=== PATIENT | female | born 1990 | race Caucasian/White ===

== ENCOUNTER 2017-08-11 07:25 | Inpatient (IN) | payer MEDICAID ==
[2017-08-11] MEDS ORDERED: Calcium Carbonate 500 MG Tab.Chew PO PRN (08:02)
[2017-08-11] MEDS ORDERED: fentaNYL 100 MCG/2 ML SDV IVPUSH PRN (08:02)
[2017-08-11] MEDS ORDERED: Sodium Chloride 0.9% 10 ML Syringe FLUSH PRN (08:02)
[2017-08-11] MEDS ORDERED: Acetaminophen 325 MG Tab PO PRN (08:02)
[2017-08-11] MEDS ORDERED: Lactated Ringers 1,000 ML IV ONE (08:10)
[2017-08-11] MEDS ORDERED: Misoprostol 50 MCG (1/2 of 100 MCG) Tab VAG ONE (08:30)
--- NOTE | 2017-08-11 08:31 | PCM.LDHP ---
L&D History of Present Illness - General Date of Service: 08/11/17 Admit Problem/Dx: Patient Status Order with Admit Dx/Problem 08/11/17 08:02 Patient Status [ADT] Routine Admission Diagnosis/Problem Admission Diagnosis/Problem - Related Data Allergies/Adverse Reactions: Allergies Allergy/AdvReac Type Severity Reaction Status Date / Time Sulfa (Sulfonamide Allergy Hives Verified 08/06/15 16:59 Antibiotics) Home Medications: Home Meds Albuterol [Ventolin HFA] 1 - 2 puff INH ASDIRECTED PRN 08/06/15 [History] QUEtiapine Fumarate [Quetiapine Fumarate] 200 mg PO BEDTIME 08/06/15 [History] Vit #116/Iron/FA/Dha [ Formula-Dha Softgel] 1 tab PO DAILY [History] Past Medical History : 2 Para: 1 Social & Family History - Tobacco Use Smoking Status *Q: Light Tobacco Smoker Years of Tobacco use: 3 Packs/Tins Daily: 0.5 - Recreational Drug Use Recreational Drug Use: No H&P Review of Systems - Review of Systems: Review Of Systems: See Below General: Reports: No Symptoms HEENT: Reports: No Symptoms Pulmonary: Reports: No Symptoms Cardiovascular: Reports: No Symptoms Gastrointestinal: Reports: No Symptoms Genitourinary: Reports: No Symptoms Musculoskeletal: Reports: No Symptoms Skin: Reports: No Symptoms Psychiatric: Reports: No Symptoms Neurological: Reports: No Symptoms Hematologic/Lymphatic: Reports: No Symptoms Immunologic: Reports: No Symptoms L&D Exam - Exam Exam: See Below - Vital Signs Vital Signs: Last Vital Signs Temp 36.2 C 08/11/17 07:40 Pulse 96 08/11/17 07:40 Resp 16 08/11/17 07:40 BP 115/82 08/11/17 07:40 Pulse Ox 98 08/11/17 07:40 - OB Specific Presentation: Vertex Estimated Weight: 7lbs - Smiley Score Smiley Score Cervix Position: Midposition Smiley Score Consistency: Soft Smiley Score Effacement: 51-70% Smiley Score Dilation: 3-4 cm Smiley Score Infant's Station: -1 ,0 Smiley Score Total: 9 - Exam General: Alert, Oriented HEENT: PERRLA, Conjunctiva Clear, EACs Clear, EOMI, Hearing Intact, Mucosa Moist & [place], Nares Patent, Normal Nasal Septum, Posterior Pharynx Clear, TMs Clear Neck: Supple, Trachea Midline Lungs: Clear to Auscultation, Normal Respiratory Effort Cardiovascular: Regular Rate, Regular Rhythm GI/Abdominal Exam: Normal Bowel Sounds, Soft, Non-Tender, No Organomegaly, No Distention, No Abnormal Bruit, No Mass, Pelvis Stable Rectal Exam: Normal Exam, Normal Rectal Tone Genitourinary: Normal external exam, Normal bimanual exam, Normal speculum exam Back Exam: Normal Inspection, Full Range of Motion Extremities: Normal Inspection, Normal Range of Motion, Non-Tender, No Pedal Edema, Normal Capillary Refill Skin: Warm, Dry, Intact Neurological: Cranial Nerves Intact, Reflexes Equal Bilateral Psychiatric: Alert, Normal Affect, Normal Mood - Patient Data Lab Results Last 24 hrs: Laboratory Results - last 24 hr 08/11/17 08/11/17 Range/Units 07:37 07:37 Urine Color Yellow Urine Appearance Cloudy Urine pH 6.0 (4.5-8.0) Ur Specific [place] 1.020 (1.008-1.030) Urine Protein Negative (NEGATIVE) mg/dL Urine Glucose (UA) Normal (NEGATIVE) mg/dL Urine Ketones Negative (NEGATIVE) mg/dL Urine Occult Blood Negative (NEGATIVE) Urine Nitrite Negative (NEGATIVE) Urine Bilirubin Negative (NEGATIVE) Urine Urobilinogen Normal (NORMAL) mg/dL Ur Leukocyte Esterase Small (NEGATIVE) Urine RBC 0-5 (0-5) Urine WBC 5-10 H (0-5) Ur Epithelial Cells Moderate Amorphous Sediment Not seen Urine Bacteria Moderate Urine Mucus Few Urine Opiates Screen Negative (NEGATIVE) Ur Oxycodone Screen Negative (NEGATIVE) Urine Methadone Screen Negative (NEGATIVE) Ur Propoxyphene Screen Negative (NEGATIVE) Ur Barbiturates Screen Negative (NEGATIVE) Ur Tricyclics Screen Negative (NEGATIVE) Ur Phencyclidine Scrn Negative (NEGATIVE) Ur Amphetamine Screen Negative (NEGATIVE) U Methamphetamines Scrn Negative (NEGATIVE) Urine MDMA Screen Negative (NEGATIVE) U Benzodiazepines Scrn Negative (NEGATIVE) U Cocaine Metab Screen Negative (NEGATIVE) U Marijuana (THC) Screen Negative (NEGATIVE) - Problem List (1) SNOMED Code(s): 54480789 ICD Code: Z34.90 - ENCNTR FOR SUPRVSN OF NORMAL , UNSP, UNSP TRIMESTER Status: Acute Current Visit: Yes Qualifiers: Weeks of gestation: 39 weeks Qualified Code(s): Z3A.39 - 39 weeks gestation of (2) Term SNOMED Code(s): 88900486 ICD Code: Z34.80 - ENCOUNTER FOR SUPRVSN OF NORMAL , UNSP TRIMESTER Status: Acute Current Visit: Yes (3) Social problem SNOMED Code(s): 373701341 ICD Code: Z65.9 - PROBLEM RELATED TO UNSPECIFIED PSYCHOSOCIAL CIRCUMSTANCES Status: Acute Current Visit: Yes (4) Elective induction of labor planned SNOMED Code(s): 007393688 ICD Code: [id number] - Status: Acute Current Visit: Yes Problem List Initiated/Reviewed/Updated: Yes Orders Last 24hrs: Active Orders 24 hr Category Date Time Status Patient Status [ADT] Routine ADT 08/11/17 08:02 Active Communication Order [RC] ASDIRECTED Care 08/11/17 08:02 Active Heart Tones [RC] PER UNIT ROUTINE Care 08/11/17 08:02 Active Local Anesthetic Infusion Pump [RC] ASDIRECTED Care 08/11/17 08:10 Active May Shower [RC] ASDIRECTED Care 08/11/17 08:02 Active Notify Provider Vital Signs [RC] PRN Care 08/11/17 08:02 Active Notify Provider [RC] PRN Care 08/11/17 08:02 Active PCEA Epidural [RC] ASDIRECTED Care 08/11/17 08:10 Active Up ad Marva [RC] ASDIRECTED Care 08/11/17 08:02 Active Vital Signs [RC] PER UNIT ROUTINE Care 08/11/17 08:02 Active CBC W/O DIFF,HEMOGRAM [HEME] Routine Lab 08/11/17 08:02 Ordered HEPATITIS B SURFACE ANTIGEN [REF] Routine Lab 08/11/17 08:10 Ordered HIV RAPID SCREEN RLFX COMFIRM [CHEM] Routine Lab 08/11/17 08:10 Ordered TYPE AND SCREEN [BBK] Routine Lab 08/11/17 08:10 Ordered Acetaminophen [Tylenol] Med 08/11/17 08:02 Active 650 mg PO Q4H PRN Calcium Carbonate [Tums] Med 08/11/17 08:02 Active 1,000 mg PO Q2H PRN Lactated Ringers [Ringers, Lactated] 1,000 ml Med 08/11/17 08:10 Active IV .BOLUS Misoprostol [Cytotec] Med 08/11/17 08:30 Once 50 mcg VAG ONETIME ONE Sodium Chloride 0.9% [Saline Flush] Med 08/11/17 08:02 Active 10 ml FLUSH ASDIRECTED PRN fentaNYL [Sublimaze] Med 08/11/17 08:02 Active 100 mcg IVPUSH Q1H PRN Epidural Catheter Management [OM.PC] Routine Oth 08/11/17 08:10 Ordered Saline Lock Insert [OM.PC] Routine Oth 08/11/17 08:02 Ordered Resuscitation Status Routine Resus Stat 08/11/17 08:02 Ordered Medication Orders Acetaminophen (Tylenol) 650 mg PO Q4H PRN PRN Reason: Pain (Mild 1-3) and fever Calcium Carbonate/Glycine (Tums) 1,000 mg PO Q2H PRN PRN Reason: Indigestion Fentanyl (Sublimaze) 100 mcg IVPUSH Q1H PRN PRN Reason: Pain (moderate 4-6) Lactated Ringer's (Ringers, Lactated) 1,000 mls @ 999 mls/hr IV .BOLUS ONE Stop: 08/11/17 09:10 Misoprostol (Cytotec) 50 mcg VAG ONETIME ONE Stop: 08/11/17 08:31 Last Admin: 08/11/17 08:20 Dose: 50 mcg Sodium Chloride (Saline Flush) 10 ml FLUSH ASDIRECTED PRN PRN Reason: Keep Vein Open Assessment/Plan Comment:: 08/11/2017 26 yo here today at 39 6/7 gestational weeks for an elective induction She transferred care to [place] last week due to social problems Occasional irregular contraction FHTs category one SVE-3/60/-1, midposition Cytotec 50mcg placed vaginally Plan- Monitor for active labor Monitor FHTS Regular Diet May be up ad marva May shower or tub bath Pain management per patient request Anticipate and plan for a vaginal delivery
[2017-08-11] MEDS ORDERED: Lactated Ringers 1,000 ML IV SCH (14:30)
--- NOTE | 2017-08-11 14:46 | PCM.PNLD ---
Labor Progress Note - VS & Meds Vital Signs: Last Vital Signs Temp 36.7 C 08/11/17 13:00 Pulse 90 08/11/17 13:00 Resp 18 08/11/17 13:00 BP 118/72 08/11/17 13:00 Pulse Ox 98 08/11/17 13:00 Active Medications: Current Medications Acetaminophen (Tylenol) 650 mg PO Q4H PRN PRN Reason: Pain (Mild 1-3) and fever Calcium Carbonate/Glycine (Tums) 1,000 mg PO Q2H PRN PRN Reason: Indigestion Fentanyl (Sublimaze) 100 mcg IVPUSH Q1H PRN PRN Reason: Pain (moderate 4-6) Lactated Ringer's (Ringers, Lactated) 1,000 mls @ 50 mls/hr IV ASDIRECTED DINAH Sodium Chloride (Saline Flush) 10 ml FLUSH ASDIRECTED PRN PRN Reason: Keep Vein Open Discontinued Medications Lactated Ringer's (Ringers, Lactated) 1,000 mls @ 999 mls/hr IV .BOLUS ONE Stop: 08/11/17 09:10 Last Admin: 08/11/17 13:11 Dose: 999 mls/hr Misoprostol (Cytotec) 50 mcg VAG ONETIME ONE Stop: 08/11/17 08:31 Last Admin: 08/11/17 08:20 Dose: 50 mcg - Uterine Contractions Uterine Monitoring Mode: External [place] Contraction Frequency (min): 2-3 Contraction Duration (sec): 70-110 Contraction Intensity: Mild Uterine Resting Tone: Soft - Vaginal Exam Dilation (cm): 4 Effacement (Percent): 80 Station: -1 Cervical Position: Anterior Sterile Vaginal Exam Performed By: Kadi Hale - Labor Progress (Free Text) Labor Progress: 08/11/2017 Labor progressing well with one dose of cytotec SVE-4/80/-1 Contractions regular FHTs category one Patient comfortable with position change-does desire a epidural eventually Plan- Continue to monitor labor Continue to monitor FHTs Epidural if patient desires for pain control Plan and anticipate a vaginal delivery
[2017-08-11] MEDS ORDERED: Ropivacaine 100 ML ONE (15:23)
[2017-08-11] MEDS ORDERED: fentaNYL 100 MCG/2 ML SDV ONE (15:23)
[2017-08-11] MEDS ORDERED: ePHEDrine 50 MG/ML SDV ONE (15:48)
[2017-08-11] MEDS ORDERED: Ondansetron 4 MG/2 ML SDV IVPUSH PRN (16:15)
[2017-08-11] MEDS ORDERED: diphenhydrAMINE 50 MG/ML SDV IVPUSH PRN ×2 (17:53)
[2017-08-11] MEDS ORDERED: Naloxone 0.4 MG/ML SDV IVPUSH PRN (17:53)
[2017-08-11] MEDS ORDERED: Ropivacaine 100 ML EPIDUR SCH (17:59)
--- NOTE | 2017-08-11 20:02 | ANES ---
DATE OF SERVICE: 08/11/2017 INDICATIONS: This 26-year-old lady is in labor and dilated approximately to 5 and there has been requested an order for an epidural placement. I discussed risks and benefits of this with the patient. She has had one before. She has understanding of these and has signed an informed consent. TECHNIQUE: She was placed in a sitting position on the edge of the bed. Her back was prepped with Betadine x3. She was given a 2 mL skin wheal at approximately L4-5 and another 2 to 3 mL of 1% Xylocaine into the deeper tissue. I was unable to attempt at this level and moved to L3-4. Again, another 2 mL of 1% Xylocaine was injected into the skin and another 2 to 3 mL into the deeper tissue. At this level, a 17-gauge Tuohy needle was placed in the epidural space using a loss resistance technique. I was unable to aspirate blood, fluid, or air from the epidural needles, and I gave her a 7 mL bolus that included 5 mL of 1.5% Xylocaine with epi plus 2 mL of preservative-free fentanyl 100 mcg. An epidural catheter was then threaded 3-4 cm into the epidural space and the needle was removed over the catheter and the catheter was brought up over her right shoulder and taped securely in place. She was then placed on 0.2% ropivacaine infusion at 12 mL to be titrated p.r.n. pain. This is reviewed with the nurse in attendance. The patient tolerated the procedure well. Her vital signs are stable. Her color is pink. She is alert, oriented, shows no signs of complications from the procedure. The Anesthesia Service will be contacted if they need further service. NAME OF PROCEDURE: Insertion of labor epidural. Yohan Arias CRNA /[id number]
--- NOTE | 2017-08-11 21:03 | PCM.PNLD ---
Labor Progress Note - VS & Meds Vital Signs: Last Vital Signs Temp 36.6 C 08/11/17 20:15 Pulse 77 08/11/17 20:15 Resp 18 08/11/17 20:15 BP 101/62 08/11/17 20:15 Pulse Ox 96 08/11/17 20:15 Active Medications: Current Medications Acetaminophen (Tylenol) 650 mg PO Q4H PRN PRN Reason: Pain (Mild 1-3) and fever Calcium Carbonate/Glycine (Tums) 1,000 mg PO Q2H PRN PRN Reason: Indigestion Diphenhydramine HCl (Benadryl) 25 mg IVPUSH Q6H PRN PRN Reason: ITCHING Diphenhydramine HCl (Benadryl) 50 mg IVPUSH Q6H PRN PRN Reason: ITCHING Fentanyl (Sublimaze) 100 mcg IVPUSH Q1H PRN PRN Reason: Pain (moderate 4-6) Lactated Ringer's (Ringers, Lactated) 1,000 mls @ 50 mls/hr IV ASDIRECTED DINAH Last Admin: 08/11/17 15:04 Dose: 50 mls/hr Naloxone HCl 0.4 mg/ Sodium (Chloride) 1,001 mls @ 0 mls/hr IV ASDIRECTED PRN; Protocol; Titrate PRN Reason: ITCHING Ropivacaine (Naropin 0.2%) 100 mls @ 0 mls/hr EPIDUR ASDIRECTED DINAH; Titrate PRN Reason: Protocol Oxytocin/Sodium Chloride (Pitocin In Ns 20 Units/1,000 Ml) 20 unit in 1,000 mls @ 6 mls/hr IV TITRATE DINAH; 2 MUNITS/MIN PRN Reason: Protocol Last Titration: 08/11/17 20:11 Dose: 3 munits/min, 9 mls/hr Naloxone HCl (Narcan) 0.1 mg IVPUSH Q5M PRN PRN Reason: IF RESP RATE LESS THAN 6 Ondansetron HCl (Zofran) 4 mg IVPUSH Q4H PRN PRN Reason: Nausea/Vomiting Last Admin: 08/11/17 19:37 Dose: 4 mg Sodium Chloride (Saline Flush) 10 ml FLUSH ASDIRECTED PRN PRN Reason: Keep Vein Open Discontinued Medications Ephedrine Sulfate (Ephedrine Sulfate) Confirm Administered Dose 50 mg .ROUTE .STK-MED ONE Stop: 08/11/17 15:49 Last Admin: 08/11/17 18:28 Dose: 50 mg Fentanyl (Sublimaze) Confirm Administered Dose 100 mcg .ROUTE .STK-MED ONE Stop: 08/11/17 15:24 Lactated Ringer's (Ringers, Lactated) 1,000 mls @ 999 mls/hr IV .BOLUS ONE Stop: 08/11/17 09:10 Last Admin: 08/11/17 13:11 Dose: 999 mls/hr Ropivacaine (Naropin 0.2%) Confirm Administered Dose 100 mls @ as directed .ROUTE .STK-MED ONE Stop: 08/11/17 15:24 Oxytocin/Sodium Chloride (Pitocin In Ns 20 Units/1,000 Ml) 20 unit in 1,000 mls @ 2,997 mls/hr IV ONETIME ONE; 999 MUNITS/MIN PRN Reason: Protocol Stop: 08/11/17 15:48 Last Admin: 08/11/17 19:04 Dose: 1 munits/min, 3 mls/hr Misoprostol (Cytotec) 50 mcg VAG ONETIME ONE Stop: 08/11/17 08:31 Last Admin: 08/11/17 08:20 Dose: 50 mcg - Uterine Contractions Uterine Monitoring Mode: External [place] Contraction Frequency (min): 1-3 Contraction Duration (sec): 90-100 Contraction Intensity: Moderate Uterine Resting Tone: Soft - Monitoring Monitor Mode: External Ultrasound - Vaginal Exam Dilation (cm): 5 Effacement (Percent): 80 Station: -1 Cervical Position: Anterior Sterile Vaginal Exam Performed By: Kadi Hale - Labor Progress (Free Text) Labor Progress: 08/11/2017 Patient progressing well in labor SVE-5/80/-1 Contractions regular FHTs category one Pain well managed with epidural Plan- Continue to monitor labor Continue to monitor FHTs Start Pitocin per protocol Plan and anticipate a vaginal delivery
[2017-08-11] MEDS ORDERED: Naloxone 0.4 MG/ML SDV ONE (21:54)
[2017-08-11] MEDS ORDERED: Lidocaine 1% 50 ML MDV ONE (21:54)
[2017-08-11] MEDS ORDERED: Mineral Oil 10 ML Bottle ONE (21:54)
[2017-08-11] MEDS ORDERED: Ibuprofen 200 MG Tab, 24 Tab Bulk Bottle PO PRN (22:34)
[2017-08-11] MEDS ORDERED: Acetaminophen 325 MG Tab, 50 Tab Bulk Bottle PO PRN (22:34)
[2017-08-11] MEDS ORDERED: Acetaminophen/HYDROcodone 325-5 MG Tab PO PRN (22:34)
[2017-08-11] MEDS ORDERED: Docusate Sodium 100 MG Cap PO PRN (22:34)
[2017-08-11] MEDS ORDERED: Ibuprofen 600 MG Tab PO PRN (22:34)
[2017-08-11] MEDS ORDERED: Witch Hazel Medicated Pads 100/Jar TOP PRN (22:34)
--- NOTE | 2017-08-11 23:05 | PCM.DEL ---
L & D Note - General Info Date of Service: 08/11/17 Mother's Due Date: 08/13/17 - Delivery Note Cervical Ripening Method: Misoprostil Delivery Outcome: Livebirth Delivery Method: Spontaneous Vaginal Delivery-Single Delivery Mode: Spontaneous Presentation: Vertex Nuchal Cord: None Anesthesia Type: Epidural Amniotic Fluid Description: Meconium Stained Episiotomy Type: None Laceration: None Placenta: Intact, Spontaneous Cord: 3 Vessels Estimated Blood Loss: 250 Resuscitation Needed: No : Bulb Syringe, Stimulated, Warmed, Mccormick Used Score 1 min: 9 Score 5 min: 9 Score 10 min: 9 Delivery Comments (Free Text/Narrative):: 08/11/2017 26 yo at 39 6/7 gestational weeks delivered a viable male infant normal spontaneous vaginal delivery in ELBA position on 08/11/2017 @ 2201. APGARS-9/9/9, Weight-6lbs 7.3oz, Length-18.5inches, no nuchal cord. placed on blanket on mothers abdomen, cord double clamped and cut by aunt of , infant bulb suctioned, stimulated and warmed. Began to pink in color and cry vigorously. Placenta spontaneous and intact. 3 vessel cord. EBL- 250ml. No lacerations noted of perineum, labia, vagina, cervix, or rectum. skin to skin with mother, both stable and in the labor and delivery room. - General Info Date of Service: 08/11/17 Admission Dx/Problem (Free Text): Patient Status Order with Admit Dx/Problem 08/11/17 08:02 Patient Status [ADT] Routine Admission Diagnosis/Problem Admission Diagnosis/Problem Functional Status: Reports: Pain Controlled - Review of Systems General: Reports: No Symptoms HEENT: Reports: No Symptoms Pulmonary: Reports: No Symptoms Cardiovascular: Reports: No Symptoms Gastrointestinal: Reports: No Symptoms Genitourinary: Reports: No Symptoms Musculoskeletal: Reports: No Symptoms Skin: Reports: No Symptoms Neurological: Reports: No Symptoms Psychiatric: Reports: No Symptoms - Patient Data Vitals - Most Recent: Last Vital Signs Temp 36.6 C 08/11/17 20:15 Pulse 75 08/11/17 21:13 Resp 16 08/11/17 21:13 BP 95/62 08/11/17 21:13 Pulse Ox 95 08/11/17 21:13 Weight - Most Recent: 84.822 kg I&O - Last 24 Hours: Intake & Output 08/11/17 08/11/17 08/12/17 14:59 22:59 06:59 Intake Total 700 1 Balance 700 1 Lab Results Last 24 Hours: Laboratory Results - last 24 hr 08/11/17 08/11/17 08/11/17 Range/Units 07:37 07:37 09:05 WBC 9.6 (4.5-11.0) K/uL RBC 3.85 (3.30-5.50) M/uL Hgb 10.9 L (12.0-15.0) g/dL Hct 34.1 L (36.0-48.0) % MCV 89 (80-98) fL MCH 28 (27-31) pg MCHC 32 (32-36) % Plt Count 248 (150-400) K/uL Urine Color Yellow Urine Appearance Cloudy Urine pH 6.0 (4.5-8.0) Ur Specific [place] 1.020 (1.008-1.030) Urine Protein Negative (NEGATIVE) mg/dL Urine Glucose (UA) Normal (NEGATIVE) mg/dL Urine Ketones Negative (NEGATIVE) mg/dL Urine Occult Blood Negative (NEGATIVE) Urine Nitrite Negative (NEGATIVE) Urine Bilirubin Negative (NEGATIVE) Urine Urobilinogen Normal (NORMAL) mg/dL Ur Leukocyte Esterase Small (NEGATIVE) Urine RBC 0-5 (0-5) Urine WBC 5-10 H (0-5) Ur Epithelial Cells Moderate Amorphous Sediment Not seen Urine Bacteria Moderate Urine Mucus Few Urine Opiates Screen Negative (NEGATIVE) Ur Oxycodone Screen Negative (NEGATIVE) Urine Methadone Screen Negative (NEGATIVE) Ur Propoxyphene Screen Negative (NEGATIVE) Ur Barbiturates Screen Negative (NEGATIVE) Ur Tricyclics Screen Negative (NEGATIVE) Ur Phencyclidine Scrn Negative (NEGATIVE) Ur Amphetamine Screen Negative (NEGATIVE) U Methamphetamines Scrn Negative (NEGATIVE) Urine MDMA Screen Negative (NEGATIVE) U Benzodiazepines Scrn Negative (NEGATIVE) U Cocaine Metab Screen Negative (NEGATIVE) U Marijuana (THC) Screen Negative (NEGATIVE) HIV-1 Ab Rapid Screen (NON-REACT.) Blood Type Gel Antibody Screen 08/11/17 08/11/17 Range/Units 09:05 09:05 WBC (4.5-11.0) K/uL RBC (3.30-5.50) M/uL Hgb (12.0-15.0) g/dL Hct (36.0-48.0) % MCV (80-98) fL MCH (27-31) pg MCHC (32-36) % Plt Count (150-400) K/uL Urine Color Urine Appearance Urine pH (4.5-8.0) Ur Specific [place] (1.008-1.030) Urine Protein (NEGATIVE) mg/dL Urine Glucose (UA) (NEGATIVE) mg/dL Urine Ketones (NEGATIVE) mg/dL Urine Occult Blood (NEGATIVE) Urine Nitrite (NEGATIVE) Urine Bilirubin (NEGATIVE) Urine Urobilinogen (NORMAL) mg/dL Ur Leukocyte Esterase (NEGATIVE) Urine RBC (0-5) Urine WBC (0-5) Ur Epithelial Cells Amorphous Sediment Urine Bacteria Urine Mucus Urine Opiates Screen (NEGATIVE) Ur Oxycodone Screen (NEGATIVE) Urine Methadone Screen (NEGATIVE) Ur Propoxyphene Screen (NEGATIVE) Ur Barbiturates Screen (NEGATIVE) Ur Tricyclics Screen (NEGATIVE) Ur Phencyclidine Scrn (NEGATIVE) Ur Amphetamine Screen (NEGATIVE) U Methamphetamines Scrn (NEGATIVE) Urine MDMA Screen (NEGATIVE) U Benzodiazepines Scrn (NEGATIVE) U Cocaine Metab Screen (NEGATIVE) U Marijuana (THC) Screen (NEGATIVE) HIV-1 Ab Rapid Screen Non-reactive (NON-REACT.) Blood Type A POSITIVE Gel Antibody Screen Negative Med Orders - Current: Current Medications Acetaminophen (Tylenol) 650 mg PO Q4H PRN PRN Reason: Pain (Mild 1-3) and fever Acetaminophen (Tylenol Bulk Bottle) 325 mg PO Q4H PRN PRN Reason: Pain Hydrocodone Bitart/Acetaminophen ([place] 325-5 Mg) 1 tab PO Q4H PRN PRN Reason: Pain (moderate 4-6) Calcium Carbonate/Glycine (Tums) 1,000 mg PO Q2H PRN PRN Reason: Indigestion Diphenhydramine HCl (Benadryl) 25 mg IVPUSH Q6H PRN PRN Reason: ITCHING Diphenhydramine HCl (Benadryl) 50 mg IVPUSH Q6H PRN PRN Reason: ITCHING Docusate Sodium (Colace) 100 mg PO BID PRN PRN Reason: Constipation Fentanyl (Sublimaze) 100 mcg IVPUSH Q1H PRN PRN Reason: Pain (moderate 4-6) Lactated Ringer's (Ringers, Lactated) 1,000 mls @ 50 mls/hr IV ASDIRECTED DINAH Last Admin: 08/11/17 15:04 Dose: 50 mls/hr Naloxone HCl 0.4 mg/ Sodium (Chloride) 1,001 mls @ 0 mls/hr IV ASDIRECTED PRN; Protocol; Titrate PRN Reason: ITCHING Ropivacaine (Naropin 0.2%) 100 mls @ 0 mls/hr EPIDUR ASDIRECTED DINAH; Titrate PRN Reason: Protocol Oxytocin/Sodium Chloride (Pitocin In Ns 20 Units/1,000 Ml) 20 unit in 1,000 mls @ 6 mls/hr IV TITRATE DINAH; 2 MUNITS/MIN PRN Reason: Protocol Last Titration: 08/11/17 22:38 Dose: 250 mls/hr Ibuprofen (Motrin) 600 mg PO Q6H PRN PRN Reason: mild pain or fever Naloxone HCl (Narcan) 0.1 mg IVPUSH Q5M PRN PRN Reason: IF RESP RATE LESS THAN 6 Ondansetron HCl (Zofran) 4 mg IVPUSH Q4H PRN PRN Reason: Nausea/Vomiting Last Admin: 08/11/17 19:37 Dose: 4 mg Sodium Chloride (Saline Flush) 10 ml FLUSH ASDIRECTED PRN PRN Reason: Keep Vein Open Witch Christiane (Tucks) 1 pad TOP ASDIRECTED PRN PRN Reason: Hemorrhoids Discontinued Medications Ephedrine Sulfate (Ephedrine Sulfate) Confirm Administered Dose 50 mg .ROUTE .STK-MED ONE Stop: 08/11/17 15:49 Last Admin: 08/11/17 18:28 Dose: 50 mg Fentanyl (Sublimaze) Confirm Administered Dose 100 mcg .ROUTE .STK-MED ONE Stop: 08/11/17 15:24 Lactated Ringer's (Ringers, Lactated) 1,000 mls @ 999 mls/hr IV .BOLUS ONE Stop: 08/11/17 09:10 Last Admin: 08/11/17 13:11 Dose: 999 mls/hr Ropivacaine (Naropin 0.2%) Confirm Administered Dose 100 mls @ as directed .ROUTE .STK-MED ONE Stop: 08/11/17 15:24 Oxytocin/Sodium Chloride (Pitocin In Ns 20 Units/1,000 Ml) 20 unit in 1,000 mls @ 2,997 mls/hr IV ONETIME ONE; 999 MUNITS/MIN PRN Reason: Protocol Stop: 08/11/17 15:48 Last Admin: 08/11/17 19:04 Dose: 1 munits/min, 3 mls/hr Ibuprofen (Motrin Bulk Bottle) 600 mg PO Q6H PRN PRN Reason: Pain Lidocaine HCl (Xylocaine 1%) Confirm Administered Dose 100 ml .ROUTE .STK-MED ONE Stop: 08/11/17 21:55 Mineral Oil (Muri-Lube) Confirm Administered Dose 10 ml .ROUTE .STK-MED ONE Stop: 08/11/17 21:55 Misoprostol (Cytotec) 50 mcg VAG ONETIME ONE Stop: 08/11/17 08:31 Last Admin: 08/11/17 08:20 Dose: 50 mcg Naloxone HCl (Narcan) Confirm Administered Dose 0.4 mg .ROUTE .STK-MED ONE Stop: 08/11/17 21:55 - Exam General: Alert, Oriented HEENT: Pupils Equal, Pupils Reactive, EOMI, Mucous Membr. Moist/[place] Neck: Supple Lungs: Clear to Auscultation, Normal Respiratory Effort Cardiovascular: Regular Rate, Regular Rhythm GI/Abdominal Exam: Normal Bowel Sounds, Soft, Non-Tender, No Organomegaly, No Distention, No Abnormal Bruit, No Mass, Pelvis Stable (Female) Exam: Normal External Exam, Normal Speculum Exam, Normal Bimanual Exam, Enlarged Uterus, Vaginal Bleeding Back Exam: Normal Inspection, Full Range of Motion Extremities: Normal Inspection, Normal Range of Motion, Non-Tender, No Pedal Edema, Normal Capillary Refill Skin: Warm, Dry, Intact Wound/Incisions: Healing Well Neurological: No New Focal Deficit Psy/Mental Status: Alert, Normal Affect, Normal Mood - Problem List & Annotations (1) SNOMED Code(s): 64640409 Code(s): Z34.90 - ENCNTR FOR SUPRVSN OF NORMAL , UNSP, UNSP TRIMESTER Status: Acute Current Visit: Yes Qualifiers: Weeks of gestation: 39 weeks Qualified Code(s): Z3A.39 - 39 weeks gestation of (2) Term SNOMED Code(s): 44753008 Code(s): Z34.80 - ENCOUNTER FOR SUPRVSN OF NORMAL , UNSP TRIMESTER Status: Acute Current Visit: Yes (3) Social problem SNOMED Code(s): 621165301 Code(s): Z65.9 - PROBLEM RELATED TO UNSPECIFIED PSYCHOSOCIAL CIRCUMSTANCES Status: Acute Current Visit: Yes (4) Elective induction of labor planned SNOMED Code(s): 345135286 Code(s): AYV7261 - Status: Acute Current Visit: Yes (5) Normal vaginal delivery SNOMED Code(s): 37912814 Code(s): O80 - ENCOUNTER FOR FULL-TERM UNCOMPLICATED DELIVERY Status: Acute Current Visit: Yes - Problem List Review Problem List Initiated/Reviewed/Updated: Yes - My Orders Last 24 Hours: My Active Orders 08/11/17 08:02 Patient Status [ADT] Routine Communication Order [RC] ASDIRECTED May Shower [RC] ASDIRECTED Notify Provider Vital Signs [RC] PRN Notify Provider [RC] PRN Up ad Kristen [RC] ASDIRECTED Vital Signs [RC] PER UNIT ROUTINE Acetaminophen [Tylenol] 650 mg PO Q4H PRN Calcium Carbonate [Tums] 1,000 mg PO Q2H PRN Sodium Chloride 0.9% [Saline Flush] 10 ml FLUSH ASDIRECTED PRN fentaNYL [Sublimaze] 100 mcg IVPUSH Q1H PRN Saline Lock Insert [OM.PC] Routine Resuscitation Status Routine 08/11/17 08:10 Epidural Catheter Management [OM.PC] Routine 08/11/17 09:05 HEPATITIS B SURFACE ANTIGEN [REF] Routine PATIENT RETYPE [BBK] Routine TYPE AND SCREEN [BBK] Routine 08/11/17 14:30 Lactated Ringers [Ringers, Lactated] 1,000 ml IV ASDIRECTED 08/11/17 16:05 Urinary Catheter Assessment [RC] ASDIRECTED 08/11/17 16:15 Kaur Catheter Insertion [Insert Urinary Catheter] [OM.PC] Q24H Ondansetron [Zofran] 4 mg IVPUSH Q4H PRN 08/11/17 17:53 Naloxone [Narcan] 0.1 mg IVPUSH Q5M PRN diphenhydrAMINE [Benadryl] 25 mg IVPUSH Q6H PRN diphenhydrAMINE [Benadryl] 50 mg IVPUSH Q6H PRN 08/11/17 17:56 Naloxone [Narcan] 0.4 mg Sodium Chloride 0.9% [Normal Saline] 1,000 ml IV ASDIRECTED 08/11/17 17:59 Ropivacaine [Naropin 0.2%] 100 ml EPIDUR ASDIRECTED 08/11/17 18:30 Oxytocin/Normal Saline [Pitocin in NS 20 Units/1,000 ML] 20 unit in 1,000 ml IV TITRATE 08/11/17 22:34 Patient Status [ADT] Routine Acetaminophen [Tylenol Bulk Bottle] 325 mg PO Q4H PRN Acetaminophen/HYDROcodone [[place] 325-5 MG] 1 tab PO Q4H PRN Docusate Sodium [Colace] 100 mg PO BID PRN Ibuprofen [Motrin] 600 mg PO Q6H PRN Witch Christiane [Tucks] 1 pad TOP ASDIRECTED PRN Assess Lochia [WOMSER] Per Unit Routine Assess Uterine Involution [WOMSER] Per Unit Routine 08/11/17 22:35 Perineal Care [OM.PC] Per Unit Routine 08/12/17 06:00 CBC WITH AUTO DIFF [HEME] Routine 08/12/17 Breakfast Regular Diet [DIET] - Assessment Assessment:: 08/11/2017 26 yo G2 now P2 at 39 6/7 gestational weeks delivered on 08/11/2017 @ 2201 without complications Bottlefeeding Labs-A positive, Rubella immune, Hep B negative, HIV negative, RPR nonreactive, GBS negative, Hgb-10.9 - Plan Plan:: 08/11/2017 26 yo here today at 39 6/7 gestational weeks for an elective induction She transferred care to [place] last week due to social problems Occasional irregular contraction FHTs category one [id number], midposition Cytotec 50mcg placed vaginally Plan- Monitor for active labor Monitor FHTS Regular Diet May be up ad kristen May shower or tub bath Pain management per patient request Anticipate and plan for a vaginal delivery 08/11/2017 Routine Cares As Fundus and bleeding per protocol Plan discharge in 24-48 hours
[2017-08-12] MEDS ORDERED: Ibuprofen 200 MG Tab, 24 Tab Bulk Bottle PO PRN (00:57)
--- NOTE | 2017-08-12 07:33 | PCM.PNPP ---
- General Info Date of Service: 08/12/17 Admission Dx/Problem (Free Text): Patient Status Order with Admit Dx/Problem 08/11/17 08:02 Patient Status [ADT] Routine Admission Diagnosis/Problem Admission Diagnosis/Problem Functional Status: Reports: Pain Controlled - Review of Systems General: Reports: No Symptoms HEENT: Reports: No Symptoms Pulmonary: Reports: No Symptoms Cardiovascular: Reports: No Symptoms Gastrointestinal: Reports: No Symptoms Genitourinary: Reports: No Symptoms Musculoskeletal: Reports: No Symptoms Skin: Reports: No Symptoms Neurological: Reports: No Symptoms Psychiatric: Reports: No Symptoms - General Info Date of Service: 08/12/17 - Patient Data Vital Signs - Most Recent: Last Vital Signs Temp 36.6 C 08/12/17 04:03 Pulse 86 08/12/17 04:03 Resp 18 08/12/17 04:03 BP 105/62 08/12/17 04:03 Pulse Ox 94 L 08/12/17 04:03 Weight - Most Recent: 84.822 kg I&O - Last 24 Hours: Intake & Output 08/11/17 08/12/17 08/12/17 22:59 06:59 14:59 Intake Total 121 1289 Output Total 200 Balance -79 1289 Lab Results - Last 24 Hours: Laboratory Results - last 24 hr 08/11/17 08/11/17 08/11/17 Range/Units 07:37 07:37 09:05 WBC 9.6 (4.5-11.0) K/uL RBC 3.85 (3.30-5.50) M/uL Hgb 10.9 L (12.0-15.0) g/dL Hct 34.1 L (36.0-48.0) % MCV 89 (80-98) fL MCH 28 (27-31) pg MCHC 32 (32-36) % Plt Count 248 (150-400) K/uL Neut % (Auto) (36-66) % Lymph % (Auto) (24-44) % [place] % (Auto) (2-6) % Eos % (Auto) (2-4) % Baso % (Auto) (0-1) % Urine Color Yellow Urine Appearance Cloudy Urine pH 6.0 (4.5-8.0) Ur Specific [place] 1.020 (1.008-1.030) Urine Protein Negative (NEGATIVE) mg/dL Urine Glucose (UA) Normal (NEGATIVE) mg/dL Urine Ketones Negative (NEGATIVE) mg/dL Urine Occult Blood Negative (NEGATIVE) Urine Nitrite Negative (NEGATIVE) Urine Bilirubin Negative (NEGATIVE) Urine Urobilinogen Normal (NORMAL) mg/dL Ur Leukocyte Esterase Small (NEGATIVE) Urine RBC 0-5 (0-5) Urine WBC 5-10 H (0-5) Ur Epithelial Cells Moderate Amorphous Sediment Not seen Urine Bacteria Moderate Urine Mucus Few Urine Opiates Screen Negative (NEGATIVE) Ur Oxycodone Screen Negative (NEGATIVE) Urine Methadone Screen Negative (NEGATIVE) Ur Propoxyphene Screen Negative (NEGATIVE) Ur Barbiturates Screen Negative (NEGATIVE) Ur Tricyclics Screen Negative (NEGATIVE) Ur Phencyclidine Scrn Negative (NEGATIVE) Ur Amphetamine Screen Negative (NEGATIVE) U Methamphetamines Scrn Negative (NEGATIVE) Urine MDMA Screen Negative (NEGATIVE) U Benzodiazepines Scrn Negative (NEGATIVE) U Cocaine Metab Screen Negative (NEGATIVE) U Marijuana (THC) Screen Negative (NEGATIVE) HIV-1 Ab Rapid Screen (NON-REACT.) Blood Type Gel Antibody Screen 08/11/17 08/11/17 08/12/17 Range/Units 09:05 09:05 06:00 WBC 12.2 H (4.5-11.0) K/uL RBC 3.41 (3.30-5.50) M/uL Hgb 9.8 L (12.0-15.0) g/dL Hct 30.4 L (36.0-48.0) % MCV 89 (80-98) fL MCH 29 (27-31) pg MCHC 32 (32-36) % Plt Count 215 (150-400) K/uL Neut % (Auto) 74 H (36-66) % Lymph % (Auto) 15 L (24-44) % [place] % (Auto) 9 H (2-6) % Eos % (Auto) 1 L (2-4) % Baso % (Auto) 0 (0-1) % Urine Color Urine Appearance Urine pH (4.5-8.0) Ur Specific [place] (1.008-1.030) Urine Protein (NEGATIVE) mg/dL Urine Glucose (UA) (NEGATIVE) mg/dL Urine Ketones (NEGATIVE) mg/dL Urine Occult Blood (NEGATIVE) Urine Nitrite (NEGATIVE) Urine Bilirubin (NEGATIVE) Urine Urobilinogen (NORMAL) mg/dL Ur Leukocyte Esterase (NEGATIVE) Urine RBC (0-5) Urine WBC (0-5) Ur Epithelial Cells Amorphous Sediment Urine Bacteria Urine Mucus Urine Opiates Screen (NEGATIVE) Ur Oxycodone Screen (NEGATIVE) Urine Methadone Screen (NEGATIVE) Ur Propoxyphene Screen (NEGATIVE) Ur Barbiturates Screen (NEGATIVE) Ur Tricyclics Screen (NEGATIVE) Ur Phencyclidine Scrn (NEGATIVE) Ur Amphetamine Screen (NEGATIVE) U Methamphetamines Scrn (NEGATIVE) Urine MDMA Screen (NEGATIVE) U Benzodiazepines Scrn (NEGATIVE) U Cocaine Metab Screen (NEGATIVE) U Marijuana (THC) Screen (NEGATIVE) HIV-1 Ab Rapid Screen Non-reactive (NON-REACT.) Blood Type A POSITIVE Gel Antibody Screen Negative Med Orders - Current: Current Medications Acetaminophen (Tylenol) 650 mg PO Q4H PRN PRN Reason: Pain (Mild 1-3) and fever Acetaminophen (Tylenol Bulk Bottle) 325 mg PO Q4H PRN PRN Reason: Pain Last Admin: 08/11/17 23:17 Dose: 50 tab Hydrocodone Bitart/Acetaminophen ([place] 325-5 Mg) 1 tab PO Q4H PRN PRN Reason: Pain (moderate 4-6) Calcium Carbonate/Glycine (Tums) 1,000 mg PO Q2H PRN PRN Reason: Indigestion Diphenhydramine HCl (Benadryl) 25 mg IVPUSH Q6H PRN PRN Reason: ITCHING Diphenhydramine HCl (Benadryl) 50 mg IVPUSH Q6H PRN PRN Reason: ITCHING Docusate Sodium (Colace) 100 mg PO BID PRN PRN Reason: Constipation Fentanyl (Sublimaze) 100 mcg IVPUSH Q1H PRN PRN Reason: Pain (moderate 4-6) Lactated Ringer's (Ringers, Lactated) 1,000 mls @ 50 mls/hr IV ASDIRECTED DINAH Last Admin: 08/11/17 15:04 Dose: 50 mls/hr Naloxone HCl 0.4 mg/ Sodium (Chloride) 1,001 mls @ 0 mls/hr IV ASDIRECTED PRN; Protocol; Titrate PRN Reason: ITCHING Ropivacaine (Naropin 0.2%) 100 mls @ 0 mls/hr EPIDUR ASDIRECTED DINAH; Titrate PRN Reason: Protocol Oxytocin/Sodium Chloride (Pitocin In Ns 20 Units/1,000 Ml) 20 unit in 1,000 mls @ 6 mls/hr IV TITRATE DINAH; 2 MUNITS/MIN PRN Reason: Protocol Last Titration: 08/11/17 22:38 Dose: 250 mls/hr Ibuprofen (Motrin) 600 mg PO Q6H PRN PRN Reason: mild pain or fever Ibuprofen (Motrin Bulk Bottle) 600 mg PO Q6H PRN PRN Reason: Pain Last Admin: 08/12/17 01:33 Dose: 600 mg Naloxone HCl (Narcan) 0.1 mg IVPUSH Q5M PRN PRN Reason: IF RESP RATE LESS THAN 6 Ondansetron HCl (Zofran) 4 mg IVPUSH Q4H PRN PRN Reason: Nausea/Vomiting Last Admin: 08/11/17 19:37 Dose: 4 mg Sodium Chloride (Saline Flush) 10 ml FLUSH ASDIRECTED PRN PRN Reason: Keep Vein Open Witch Christiane (Tucks) 1 pad TOP ASDIRECTED PRN PRN Reason: Hemorrhoids Last Admin: 08/12/17 06:39 Dose: 1 pad Discontinued Medications Ephedrine Sulfate (Ephedrine Sulfate) Confirm Administered Dose 50 mg .ROUTE .STK-MED ONE Stop: 08/11/17 15:49 Last Admin: 08/11/17 18:28 Dose: 50 mg Fentanyl (Sublimaze) Confirm Administered Dose 100 mcg .ROUTE .STK-MED ONE Stop: 08/11/17 15:24 Lactated Ringer's (Ringers, Lactated) 1,000 mls @ 999 mls/hr IV .BOLUS ONE Stop: 08/11/17 09:10 Last Admin: 08/11/17 13:11 Dose: 999 mls/hr Ropivacaine (Naropin 0.2%) Confirm Administered Dose 100 mls @ as directed .ROUTE .STK-MED ONE Stop: 08/11/17 15:24 Oxytocin/Sodium Chloride (Pitocin In Ns 20 Units/1,000 Ml) 20 unit in 1,000 mls @ 2,997 mls/hr IV ONETIME ONE; 999 MUNITS/MIN PRN Reason: Protocol Stop: 08/11/17 15:48 Last Admin: 08/11/17 19:04 Dose: 1 munits/min, 3 mls/hr Ibuprofen (Motrin Bulk Bottle) 600 mg PO Q6H PRN PRN Reason: Pain Lidocaine HCl (Xylocaine 1%) Confirm Administered Dose 100 ml .ROUTE .STK-MED ONE Stop: 08/11/17 21:55 Last Admin: 08/12/17 02:11 Dose: Not Given Mineral Oil (Muri-Lube) Confirm Administered Dose 10 ml .ROUTE .STK-MED ONE Stop: 08/11/17 21:55 Last Admin: 08/12/17 02:11 Dose: Not Given Misoprostol (Cytotec) 50 mcg VAG ONETIME ONE Stop: 08/11/17 08:31 Last Admin: 08/11/17 08:20 Dose: 50 mcg Naloxone HCl (Narcan) Confirm Administered Dose 0.4 mg .ROUTE .STK-MED ONE Stop: 08/11/17 21:55 Last Admin: 08/12/17 02:11 Dose: Not Given - Interaction Infant Disposition, : [place] in Room with Family Interaction: Holding Feeding: Bottle Fed Infant Support Person: Friend - Recovery Exam Fundal Tone: Firm Fundal Level: At Umbilicus Fundal Placement: Midline Lochia Amount: Moderate Lochia Color: Rubra/Red Perineum Description: Intact, Minimal Bruising/Swelling Episiotomy/Laceration: None Bladder Status: Voiding Urinary Elimination: Other (see below) Other Urinary Elimination, : due to void - Exam General: Alert, Oriented HEENT: Pupils Equal Neck: Supple Lungs: Clear to Auscultation, Normal Respiratory Effort Cardiovascular: Regular Rate, Regular Rhythm GI/Abdominal Exam: Normal Bowel Sounds, Soft, Non-Tender, No Organomegaly, No Distention, No Abnormal Bruit, No Mass, Pelvis Stable Extremities: Normal Inspection, Normal Range of Motion, Non-Tender, No Pedal Edema, Normal Capillary Refill Skin: Warm, Dry, Intact Wound/Incisions: Healing Well Neurological: No New Focal Deficit Psy/Mental Status: Alert, Normal Affect, Normal Mood - Problem List & Annotations (1) SNOMED Code(s): 67425285 Code(s): Z34.90 - ENCNTR FOR SUPRVSN OF NORMAL , UNSP, UNSP TRIMESTER Status: Acute Current Visit: Yes Qualifiers: Weeks of gestation: 39 weeks Qualified Code(s): Z3A.39 - 39 weeks gestation of (2) Term SNOMED Code(s): 14808499 Code(s): Z34.80 - ENCOUNTER FOR SUPRVSN OF NORMAL , UNSP TRIMESTER Status: Acute Current Visit: Yes (3) Social problem SNOMED Code(s): 241619537 Code(s): Z65.9 - PROBLEM RELATED TO UNSPECIFIED PSYCHOSOCIAL CIRCUMSTANCES Status: Acute Current Visit: Yes (4) Elective induction of labor planned SNOMED Code(s): 499685029 Code(s): WHG9742 - Status: Acute Current Visit: Yes (5) Normal vaginal delivery SNOMED Code(s): 42572717 Code(s): O80 - ENCOUNTER FOR FULL-TERM UNCOMPLICATED DELIVERY Status: Acute Current Visit: Yes - Problem List Review Problem List Initiated/Reviewed/Updated: Yes - My Orders Last 24 Hours: My Active Orders 08/11/17 08:02 Patient Status [ADT] Routine Communication Order [RC] ASDIRECTED May Shower [RC] ASDIRECTED Notify Provider Vital Signs [RC] PRN Notify Provider [RC] PRN Up ad Marva [RC] ASDIRECTED Vital Signs [RC] PER UNIT ROUTINE Acetaminophen [Tylenol] 650 mg PO Q4H PRN Calcium Carbonate [Tums] 1,000 mg PO Q2H PRN Sodium Chloride 0.9% [Saline Flush] 10 ml FLUSH ASDIRECTED PRN fentaNYL [Sublimaze] 100 mcg IVPUSH Q1H PRN Saline Lock Insert [OM.PC] Routine Resuscitation Status Routine 08/11/17 08:10 Epidural Catheter Management [OM.PC] Routine 08/11/17 09:05 HEPATITIS B SURFACE ANTIGEN [REF] Routine 08/11/17 14:30 Lactated Ringers [Ringers, Lactated] 1,000 ml IV ASDIRECTED 08/11/17 16:15 Kaur Catheter Insertion [Insert Urinary Catheter] [OM.PC] Q24H Ondansetron [Zofran] 4 mg IVPUSH Q4H PRN 08/11/17 17:53 Naloxone [Narcan] 0.1 mg IVPUSH Q5M PRN diphenhydrAMINE [Benadryl] 25 mg IVPUSH Q6H PRN diphenhydrAMINE [Benadryl] 50 mg IVPUSH Q6H PRN 08/11/17 17:56 Naloxone [Narcan] 0.4 mg Sodium Chloride 0.9% [Normal Saline] 1,000 ml IV ASDIRECTED 08/11/17 17:59 Ropivacaine [Naropin 0.2%] 100 ml EPIDUR ASDIRECTED 08/11/17 18:30 Oxytocin/Normal Saline [Pitocin in NS 20 Units/1,000 ML] 20 unit in 1,000 ml IV TITRATE 08/11/17 22:34 Patient Status [ADT] Routine Acetaminophen [Tylenol Bulk Bottle] 325 mg PO Q4H PRN Acetaminophen/HYDROcodone [[place] 325-5 MG] 1 tab PO Q4H PRN Docusate Sodium [Colace] 100 mg PO BID PRN Ibuprofen [Motrin] 600 mg PO Q6H PRN Witch Christiane [Tucks] 1 pad TOP ASDIRECTED PRN Assess Lochia [WOMSER] Per Unit Routine Assess Uterine Involution [WOMSER] Per Unit Routine 08/11/17 22:35 Perineal Care [OM.PC] Per Unit Routine 08/12/17 00:57 Ibuprofen [Motrin Bulk Bottle] 600 mg PO Q6H PRN 08/12/17 Breakfast Regular Diet [DIET] - Assessment Assessment:: 08/11/2017 26 yo G2 now P2 at 39 6/7 gestational weeks delivered on 08/11/2017 @ 2201 without complications Bottlefeeding Labs-A positive, Rubella immune, Hep B negative, HIV negative, RPR nonreactive, GBS negative, Hgb-10.9 08/12/2017 day one Bottlefeeding Fundus firm, bleeding decreasing, has had small amount of clots Voiding and passing gas - Plan Plan:: 08/11/2017 26 yo here today at 39 6/7 gestational weeks for an elective induction She transferred care to [place] last week due to social problems Occasional irregular contraction FHTs category one SVE-3/60/-1, midposition Cytotec 50mcg placed vaginally Plan- Monitor for active labor Monitor FHTS Regular Diet May be up ad marva May shower or tub bath Pain management per patient request Anticipate and plan for a vaginal delivery 08/11/2017 Routine Cares As Fundus and bleeding per protocol Plan discharge in 24-48 hours 08/12/2017 Continue Routine Cares Leave IV in till tomorrow Will recheck CBC in am tomorrow Plan discharge tomorrow if stable
[2017-08-12] MEDS ORDERED: Acetaminophen 325 MG Tab, 50 Tab Bulk Bottle PO PRN (07:42)
[2017-08-13 07:34] VITALS: BP 107/65
--- NOTE | 2017-08-13 09:13 | PCM.PNPP ---
- General Info Date of Service: 08/13/17 Admission Dx/Problem (Free Text): Patient Status Order with Admit Dx/Problem 08/11/17 08:02 Patient Status [ADT] Routine Admission Diagnosis/Problem Admission Diagnosis/Problem Functional Status: Reports: Pain Controlled - Review of Systems General: Reports: No Symptoms HEENT: Reports: No Symptoms Pulmonary: Reports: No Symptoms Cardiovascular: Reports: No Symptoms Gastrointestinal: Reports: No Symptoms Genitourinary: Reports: No Symptoms Musculoskeletal: Reports: No Symptoms Skin: Reports: No Symptoms Neurological: Reports: No Symptoms Psychiatric: Reports: No Symptoms - General Info Date of Service: 08/13/17 - Patient Data Vital Signs - Most Recent: Last Vital Signs Temp 36.1 C 08/13/17 07:33 Pulse 85 08/13/17 07:33 Resp 18 08/13/17 07:33 BP 107/65 08/13/17 07:33 Pulse Ox 97 08/13/17 07:33 Weight - Most Recent: 84.822 kg I&O - Last 24 Hours: Intake & Output 08/12/17 08/13/17 08/13/17 22:59 06:59 14:59 Intake Total 480 Balance 480 Lab Results - Last 24 Hours: Laboratory Results - last 24 hr 08/13/17 Range/Units 05:27 Hgb 9.8 L (12.0-15.0) g/dL Med Orders - Current: Current Medications Acetaminophen (Tylenol Bulk Bottle) 325 - 650 mg PO Q4H PRN PRN Reason: Pain Hydrocodone Bitart/Acetaminophen (Finley 325-5 Mg) 1 tab PO Q4H PRN PRN Reason: Pain (moderate 4-6) Calcium Carbonate/Glycine (Tums) 1,000 mg PO Q2H PRN PRN Reason: Indigestion Diphenhydramine HCl (Benadryl) 25 mg IVPUSH Q6H PRN PRN Reason: ITCHING Diphenhydramine HCl (Benadryl) 50 mg IVPUSH Q6H PRN PRN Reason: ITCHING Docusate Sodium (Colace) 100 mg PO BID PRN PRN Reason: Constipation Lactated Ringer's (Ringers, Lactated) 1,000 mls @ 50 mls/hr IV ASDIRECTED DINAH Last Admin: 08/11/17 15:04 Dose: 50 mls/hr Naloxone HCl 0.4 mg/ Sodium (Chloride) 1,001 mls @ 0 mls/hr IV ASDIRECTED PRN; Protocol; Titrate PRN Reason: ITCHING Oxytocin/Sodium Chloride (Pitocin In Ns 20 Units/1,000 Ml) 20 unit in 1,000 mls @ 6 mls/hr IV TITRATE DINAH; 2 MUNITS/MIN PRN Reason: Protocol Last Titration: 08/11/17 22:38 Dose: 250 mls/hr Ibuprofen (Motrin Bulk Bottle) 600 mg PO Q6H PRN PRN Reason: Pain Last Admin: 08/12/17 01:33 Dose: 600 mg Naloxone HCl (Narcan) 0.1 mg IVPUSH Q5M PRN PRN Reason: IF RESP RATE LESS THAN 6 Ondansetron HCl (Zofran) 4 mg IVPUSH Q4H PRN PRN Reason: Nausea/Vomiting Last Admin: 08/11/17 19:37 Dose: 4 mg Sodium Chloride (Saline Flush) 10 ml FLUSH ASDIRECTED PRN PRN Reason: Keep Vein Open Witch Christiane (Tucks) 1 pad TOP ASDIRECTED PRN PRN Reason: Hemorrhoids Last Admin: 08/12/17 06:39 Dose: 1 pad Discontinued Medications Acetaminophen (Tylenol) 650 mg PO Q4H PRN PRN Reason: Pain (Mild 1-3) and fever Acetaminophen (Tylenol Bulk Bottle) 325 mg PO Q4H PRN PRN Reason: Pain Last Admin: 08/11/17 23:17 Dose: 50 tab Ephedrine Sulfate (Ephedrine Sulfate) Confirm Administered Dose 50 mg .ROUTE .STK-MED ONE Stop: 08/11/17 15:49 Last Admin: 08/11/17 18:28 Dose: 50 mg Fentanyl (Sublimaze) 100 mcg IVPUSH Q1H PRN PRN Reason: Pain (moderate 4-6) Fentanyl (Sublimaze) Confirm Administered Dose 100 mcg .ROUTE .STK-MED ONE Stop: 08/11/17 15:24 Lactated Ringer's (Ringers, Lactated) 1,000 mls @ 999 mls/hr IV .BOLUS ONE Stop: 08/11/17 09:10 Last Admin: 08/11/17 13:11 Dose: 999 mls/hr Ropivacaine (Naropin 0.2%) Confirm Administered Dose 100 mls @ as directed .ROUTE .STK-MED ONE Stop: 08/11/17 15:24 Oxytocin/Sodium Chloride (Pitocin In Ns 20 Units/1,000 Ml) 20 unit in 1,000 mls @ 2,997 mls/hr IV ONETIME ONE; 999 MUNITS/MIN PRN Reason: Protocol Stop: 08/11/17 15:48 Last Admin: 08/11/17 19:04 Dose: 1 munits/min, 3 mls/hr Ropivacaine (Naropin 0.2%) 100 mls @ 0 mls/hr EPIDUR ASDIRECTED DINAH; Titrate PRN Reason: Protocol Ibuprofen (Motrin Bulk Bottle) 600 mg PO Q6H PRN PRN Reason: Pain Ibuprofen (Motrin) 600 mg PO Q6H PRN PRN Reason: mild pain or fever Lidocaine HCl (Xylocaine 1%) Confirm Administered Dose 100 ml .ROUTE .STK-MED ONE Stop: 08/11/17 21:55 Last Admin: 08/12/17 02:11 Dose: Not Given Mineral Oil (Muri-Lube) Confirm Administered Dose 10 ml .ROUTE .STK-MED ONE Stop: 08/11/17 21:55 Last Admin: 08/12/17 02:11 Dose: Not Given Misoprostol (Cytotec) 50 mcg VAG ONETIME ONE Stop: 08/11/17 08:31 Last Admin: 08/11/17 08:20 Dose: 50 mcg Naloxone HCl (Narcan) Confirm Administered Dose 0.4 mg .ROUTE .STK-MED ONE Stop: 08/11/17 21:55 Last Admin: 08/12/17 02:11 Dose: Not Given - Infant Interaction Infant Disposition, : in Room with Family Interaction: Holding Infant Infant Feeding: Bottle Fed Infant Support Person: Friend - Recovery Exam Fundal Tone: Firms with Massage Fundal Level: 2 Fingerbreadths Below Umbilicus Fundal Placement: Left Lochia Amount: Moderate Lochia Color: Rubra/Red Perineum Description: Intact, Minimal Bruising/Swelling Episiotomy/Laceration: None Bladder Status: Voiding Urinary Elimination: Other (see below) Other Urinary Elimination, : due to void - Exam General: Alert, Oriented HEENT: Pupils Equal Neck: Supple Lungs: Clear to Auscultation, Normal Respiratory Effort Cardiovascular: Regular Rate, Regular Rhythm GI/Abdominal Exam: Normal Bowel Sounds, Soft, Non-Tender, No Organomegaly, No Distention, No Abnormal Bruit, No Mass, Pelvis Stable Extremities: Normal Inspection, Normal Range of Motion, Non-Tender, No Pedal Edema, Normal Capillary Refill Skin: Warm, Dry, Intact Neurological: No New Focal Deficit Psy/Mental Status: Alert, Normal Affect, Normal Mood - Problem List & Annotations (1) SNOMED Code(s): 66275278 Code(s): Z34.90 - ENCNTR FOR SUPRVSN OF NORMAL , UNSP, UNSP TRIMESTER Status: Acute Current Visit: Yes Qualifiers: Weeks of gestation: 39 weeks Qualified Code(s): Z3A.39 - 39 weeks gestation of (2) Term SNOMED Code(s): 35870255 Code(s): Z34.80 - ENCOUNTER FOR SUPRVSN OF NORMAL , UNSP TRIMESTER Status: Acute Current Visit: Yes (3) Social problem SNOMED Code(s): 368551764 Code(s): Z65.9 - PROBLEM RELATED TO UNSPECIFIED PSYCHOSOCIAL CIRCUMSTANCES Status: Acute Current Visit: Yes (4) Elective induction of labor planned SNOMED Code(s): 966941426 Code(s): [id number] - Status: Acute Current Visit: Yes (5) Normal vaginal delivery SNOMED Code(s): 15506274 Code(s): O80 - ENCOUNTER FOR FULL-TERM UNCOMPLICATED DELIVERY Status: Acute Current Visit: Yes - Problem List Review Problem List Initiated/Reviewed/Updated: Yes - Assessment Assessment:: 08/11/2017 26 yo G2 now P2 at 39 6/7 gestational weeks delivered on 08/11/2017 @ 2201 without complications Bottlefeeding Labs-A positive, Rubella immune, Hep B negative, HIV negative, RPR nonreactive, GBS negative, Hgb-10.9 08/12/2017 day one Bottlefeeding Fundus firm, bleeding decreasing, has had small amount of clots Voiding and passing gas 08/13/2017 day two Bottlefeeding Fundus firm, bleeding better-Hgb remains 9.8 Voiding and passing gas Home today - Plan Plan:: 08/11/2017 26 yo here today at 39 6/7 gestational weeks for an elective induction She transferred care to [place] last week due to social problems Occasional irregular contraction FHTs category one SVE-/-1, midposition Cytotec 50mcg placed vaginally Plan- Monitor for active labor Monitor FHTS Regular Diet May be up ad kristen May shower or tub bath Pain management per patient request Anticipate and plan for a vaginal delivery 08/11/2017 Routine Cares As Fundus and bleeding per protocol Plan discharge in 24-48 hours 08/12/2017 Continue Routine Cares Leave IV in till tomorrow Will recheck CBC in am tomorrow Plan discharge tomorrow if stable 08/13/2017 Continue Routine Cares Plan discharge today See me for visit in six weeks
== END 2017-08-13 11:00 | disposition home or self-care (01) | DRG 775 ==
LOC: JP.OB 07:25 → OBSVTOIN 22:01 → JP.MS 22:01 → JP.OB 22:01
PROVIDERS: ADMIT Advanced Practice Midwife; ATTEND Advanced Practice Midwife
PROC: 10E0XZZ Delivery of Products of Conception, External Approach (ICD-10-PCS; principal; 2017-08-11)
PROC: 3E0P3VZ Introduction of Hormone into Female Reproductive, Percutaneous Approach (ICD-10-PCS; 2017-08-11)
PROC: 3E0P7VZ Introduction of Hormone into Female Reproductive, Via Natural or Artificial Opening (ICD-10-PCS; 2017-08-11)
PROC: 00HU33Z Insertion of Infusion Device into Spinal Canal, Percutaneous Approach (ICD-10-PCS; 2017-08-11)
DX: O77.0 Labor and delivery complicated by meconium in amniotic fluid (principal); Z3A.39 39 weeks gestation of pregnancy; Z37.0 Single live birth; Z88.2 Allergy status to sulfonamides; Z65.9 Problem related to unspecified psychosocial circumstances
CPT/HCPCS: 36415; 59409; 80305; 81001; 85018; 85025; 85027; 86850; 86900; 86901; 87340; 87449; A9270-GY; J2405; J2590; J2795; J3010; J7120